=== PATIENT | male | born 1995 ===

== ENCOUNTER 2018-03-08 04:47 | Emergency (ER) | payer MEDICAID ==
[2018-03-08] MEDS ORDERED: MAG HYDROX/AL HYDROX/SIMETH SUSP 30 ML UDCUP PO ONE (07:26)
[2018-03-08] MEDS ORDERED: LIDOCAINE 2% VISCOUS SOLN 20 ML UDCUP PO ONE (07:26)
[2018-03-08] MEDS ORDERED: METOCLOPRAMIDE HCL ORAL SOLN 10 MG/10 ML UDCUP PO ONE (07:26)
--- NOTE | 2018-03-08 08:25 | RADIOLOGY REPORT (SQ) ---
EXAM DESCRIPTION: KUB/ABDOMEN (SINGLE VIEW) COMPLETED DATE/TIME: 03/08/2018 8:01 am REASON FOR STUDY: abdominal bloating COMPARISON: None. NUMBER OF VIEWS: One view. TECHNIQUE: Supine radiographic image of the abdomen acquired. LIMITATIONS: None. FINDINGS: BOWEL GAS PATTERN: Mild gas and stool throughout the colon but no evidence of significantl y dilated loops. Nonobstructive pattern. CALCIFICATIONS: No suspicious calcifications. SOFT TISSUES: No gross mass or suggestion of organomegaly. HARDWARE: None in the abdomen. BONES: No acute fracture. No worrisome bone lesions. OTHER: No other significant finding. IMPRESSION: NO RADIOGRAPHIC EVIDENCE FOR ACUTE ABDOMINAL DISEASE. TECHNICAL DOCUMENTATION: JOB ID: [id number] [employer]- All Rights Reserved Reading location - IP/workstation name: [email or web address]
--- NOTE | 2018-03-08 08:33 | ER Document Report ---
ED General - General Chief Complaint: Abdominal Pain Stated Complaint: NAUSEA/ABDOMINAL PAIN Time Seen by Provider: 03/08/18 07:10 Mode of Arrival: Ambulatory Information source: Patient - HPI Patient complains to provider of: reflux for 6 months Onset: Other - This otherwise healthy 22-year-old man presents for reflux symptoms which she has been suffering for for the last 6 months he tried taking some Prilosec which helped modestly with his symptoms got tired of it stop taking it. He notes that this morning seem to be worse than it normally is by little bit so he decided to come the emergency room for further investigation, he denies fevers chills episodes of emesis diarrhea constipation or dysuria has not had any real surgeries in the past is not allergic to anything does occasionally smoke cigarettes does smoke weed. - Related Data Allergies/Adverse Reactions: No Known Allergies Allergy (Unverified 03/08/18 04:50) Past Medical History - Social History Smoking Status: Current Some Day Smoker Chew tobacco use (# tins/day): No Frequency of alcohol use: None Drug Abuse: Marijuana Family History: Reviewed & Not Pertinent Patient has suicidal ideation: No Patient has homicidal ideation: No Renal/ Medical History: Denies: Hx Peritoneal Dialysis - Immunizations Hx Diphtheria, Pertussis, Tetanus Vaccination: Yes Review of Systems - Review of Systems -: Yes All other systems reviewed and negative Physical Exam - Vital signs Vitals: Temp Pulse Resp BP Pulse Ox 97.5 F 68 16 147/81 H 100 03/08/18 04:55 03/08/18 04:55 03/08/18 04:55 03/08/18 04:55 03/08/18 04:55 - General General appearance: Appears well In distress: None - HEENT Head: Normocephalic Eyes: Normal Cornea: Normal Extraocular movements intact: Yes - Respiratory Respiratory status: No respiratory distress Chest status: Nontender Breath sounds: Normal Chest palpation: Normal - Cardiovascular Rhythm: Regular Heart sounds: Normal auscultation Murmur: No - Abdominal Inspection: Normal Distension: No distension Tenderness: Nontender - Back Back: Normal - Extremities General upper extremity: Normal inspection, Normal strength General lower extremity: Normal inspection, Normal strength - Neurological Neuro grossly intact: Yes Cognition: Normal Orientation: AAOx4 [place] Coma Scale Eye Opening: Spontaneous [place] Coma Scale Verbal: Oriented - Psychological Associated symptoms: Normal affect Course - Re-evaluation Re-evalutation: 03/08/18 17:25 This well-appearing 22-year-old male with benign abdominal examination presents for concern of reflux symptoms. Desiccation the patient's abdominal examination is entirely benign, he does not have any symptoms, there is no appreciable rebound or guarding. We will administer GI cocktail and obtain a plain view of the abdomen for possible underlying stool burden is he has had some loose stools in the past. On examination the patient continues to have a benign abdomen. No rebound no guarding, he was given a GI cocktail which improved his symptoms greatly, will plan for this patient undergo discharge with encouragement to utilize Pepcid as well as smoking cessation to try and improve his symptoms. Is in agreement with the symptoms treatments at this time. We will plan for discharge with return precautions do not believe this represents a more serious underlying condition such as but not limited to diverticulitis or appendicitis. He has got no tenderness over the gallbladder other. - Vital Signs Vital signs: Temp Pulse Resp BP Pulse Ox 98.3 F 66 18 116/57 L 98 03/08/18 08:56 03/08/18 08:56 03/08/18 08:56 03/08/18 08:56 03/08/18 08:56 Discharge - Discharge Clinical Impression: Reflux gastritis Constipated Qualifiers: Constipation type: unspecified constipation type Qualified Code(s): K59.00 - Constipation, unspecified Condition: Good Disposition: HOME, SELF-CARE Instructions: Abdominal Pain ([facility]), Bulk Laxatives, Reflux Disease (GERD) ([facility]) Additional Instructions: Your seen today in the emergency department for your constipation and abdominal pain which is likely reflux. He had an evaluation including a physical exam and x-ray. Call doctor tomorrow to schedule an appointment this week. Return for any worsening pain, inability to eat or drink. Otherwise use the prescribed laxative for you as well as the prescribed reflux medicine as directed. Prescriptions: Famotidine [Pepcid 20 mg Tablet] 20 mg PO BID #12 tablet Polyethylene Glycol 3350 [Miralax Powder 17 gm/Packet] 1 packet PO DAILY #1 pkg Forms: Smoking Cessation Education, Elevated Blood Pressure
[2018-03-08 08:59] VITALS: BP 116/57
== END 2018-03-08 08:58 | disposition home or self-care (01) ==
LOC: ER 04:47
DX: K21.9 Gastro-esophageal reflux disease without esophagitis (principal); K59.00 Constipation, unspecified; R10.9 Unspecified abdominal pain; Z79.899 Other long term (current) drug therapy; F17.200 Nicotine dependence, unspecified, uncomplicated
CPT/HCPCS: 99284; 74018; J3490 ×3